=== PATIENT | male | born 1960 | race Caucasian/White ===

== ENCOUNTER 2021-01-28 08:14 | Outpatient (REF) | payer OTHER, SELFPAY ==
[2021-01-28 10:46] LABS: MANUAL DIFF FLAG NO
[2021-01-28 11:05] LABS: Basophils Absolute Auto 0.1 X10*3/uL (0.0-0.2); Basophils Percent Auto 0.8 % (0-2); Eosinophils Absolute Auto 0.1 X10*3/uL (0.0-0.4); Eosinophils Percent Auto 0.9 % (0-4); Hematocrit 46.1 % (42-52); Imm Gran Abs Auto 0.02 X10*3/uL (0.00-0.03); Imm Gran Pct Auto 0.2 % (0.0-0.4); Lymphocytes Absolute Auto 1.1 X10*3/uL (1.2-4.9); Lymphocytes Percent Auto 12.5 % (20-40); Mean Corpuscular HGB Conc 34.7 g/dl (31.0-36.0); Mean Corpuscular Hemoglobin 30.2 pg (27.0-33.0); Mean Platelet Volume 10.1 fL (9.4-12.4); Monocytes Absolute Auto 0.7 X10*3/uL (0.1-1.2); Monocytes Percent Auto 8.7 % (2-11); Neutrophils Absolute Auto 6.6 X10*3/uL (2.0-8.3); Neutrophils Percent Auto 76.9 % (45-73); Platelet Count 284 X10*3/uL (160-400); Red Cell Distribution Width 11.9 % (11.0-16.0); White Blood Count 8.5 X10*3/uL (4.8-10.8)
[2021-01-28 11:32] LABS: Alanine Aminotransferase 20 U/L (0-40); Albumin Level 4.3 g/dL (3.5-5.0); Alkaline Phosphatase 94 U/L (39-117); Anion Gap 10 (12-20); Aspartate Amino Transferase 15 U/L (5-37); Bilirubin Total 0.5 mg/dL (0.0-1.0); Blood Urea Nitrogen 13 mg/dL (9-16); Calcium 9.4 mg/dL (8.4-10.2); Carbon Dioxide 29 mmol/L (22-29); Chloride 102 mmol/L (96-108); Cholesterol 261 mg/dL; Estimated Glomerular Filt Rate > 60; Glucose Fasting 119 mg/dL (60-99); HDL Cholesterol 52 mg/dL; LDL Cholesterol Calculated 177 mg/dl; Potassium 4.6 mmol/L (3.3-5.1); Sodium 136 mmol/L (135-145); Total Protein 7.2 g/dL (6.5-8.0); Triglycerides 162 mg/dL
[2021-01-28 11:44] LABS: Prostate Specific Antigen Scr 1.56 ng/mL (<0.05-4.0); TSH reflex Free T4 3.63 uIU/mL (0.32-4.0)
== END 2021-01-28 08:15 | disposition home or self-care (01) ==
LOC: HO.WFDLDS 08:14
PROVIDERS: Visit Provider Family Medicine
DX: Z00.00 Encounter for general adult medical examination without abnormal findings (principal); M54.5 Low back pain; Z12.5 Encounter for screening for malignant neoplasm of prostate
CPT/HCPCS: 36415; 80053; 80061; 84153; 84443; 85025

== ENCOUNTER 2021-03-10 18:30 | Outpatient (REF) | payer OTHER, SELFPAY ==
[2021-03-11 05:16] LABS: CT PCR NOT DETECTED (Not Detect.); NG PCR NOT DETECTED (Not Detect.)
== END 2021-03-10 18:31 | disposition home or self-care (01) ==
LOC: HO.LNP 18:30
PROVIDERS: Visit Provider Hospitalist
DX: Z20.2 Contact with and (suspected) exposure to infections with a predominantly sexual mode of transmission (principal)
CPT/HCPCS: 87086; 87491; 87591

== ENCOUNTER 2021-03-11 13:26 | Outpatient (REF) | payer MEDICARE, SELFPAY | END 2021-03-11 13:27 | disposition home or self-care (01) | LOC: HO.LNP 13:26 | PROVIDERS: Visit Provider Hospitalist | DX: Z76.89 Persons encountering health services in other specified circumstances (principal) | CPT/HCPCS: 87086 ==

== ENCOUNTER 2021-03-27 09:33 | Outpatient (REF) | payer MEDICARE, SELFPAY ==
--- NOTE | ~2021-03-27 | US_ITS ---
EXAMINATION: US PELVIS, LIMITED/FOLLOW UP CLINICAL INFORMATION: Left inguinal pain. COMPARISON: None TECHNIQUE: Targeted sonographic evaluation of the left inguinal region. FINDINGS: Mesh associated with previous hernia repair noted. No acute abnormality. No hernia. No mass. No lymphadenopathy. Incidental note of atherosclerotic plaque of the left common femoral artery. US/US pelvic limited IMPRESSION: Evidence of prior hernia repair with mesh. No focal abnormality seen at this time.
== END 2021-03-27 09:34 | disposition home or self-care (01) ==
LOC: HO.US 09:33
PROVIDERS: PCP Family Medicine; Visit Provider Family Medicine
DX: R10.30 Lower abdominal pain, unspecified (principal)
CPT/HCPCS: 76857

== ENCOUNTER → 2021-06-06 08:20 | Outpatient (BNVA) | payer MEDICARE, SELFPAY | PROVIDERS: PCP Family Medicine; Visit Provider Nurse Practitioner Family | DX: M53.3 Sacrococcygeal disorders, not elsewhere classified (principal) | CPT/HCPCS: 99202 ==

== ENCOUNTER → 2021-06-27 08:01 | Outpatient (BNVA) | payer MEDICARE, SELFPAY | PROVIDERS: PCP Family Medicine; Visit Provider Nurse Practitioner Family | DX: M53.3 Sacrococcygeal disorders, not elsewhere classified (principal); M47.816 Spondylosis without myelopathy or radiculopathy, lumbar region | CPT/HCPCS: 99212 ==

== ENCOUNTER 2021-08-27 08:28 | Outpatient (REF) | payer MEDICARE, SELFPAY ==
[2021-08-27 11:37] LABS: Estimated Average Glucose 117 mg/dL; Hemoglobin A1c % 5.7 %
[2021-08-27 12:15] LABS: Cholesterol 308 mg/dL; HDL Cholesterol 47 mg/dL; LDL Cholesterol Calculated 223 mg/dl; Triglycerides 194 mg/dL
[2021-08-29 00:35] LABS: LDL Cholesterol Direct 216 mg/dL (<100)
== END 2021-08-27 08:29 | disposition home or self-care (01) ==
LOC: HO.WFDLDS 08:28
PROVIDERS: Visit Provider Family Medicine
DX: R73.01 Impaired fasting glucose (principal); E78.5 Hyperlipidemia, unspecified; E78.2 Mixed hyperlipidemia
CPT/HCPCS: 36415; 80061; 83036; 83721

== ENCOUNTER 2021-12-08 08:55 | Outpatient (REF) | payer MEDICARE, SELFPAY ==
[2021-12-08 12:03] LABS: Cholesterol 146 mg/dL; HDL Cholesterol 41 mg/dL; LDL Cholesterol Calculated 84 mg/dl; Triglycerides 107 mg/dL
== END 2021-12-08 08:56 | disposition home or self-care (01) ==
LOC: HO.WFDLDS 08:55
PROVIDERS: Visit Provider Family Medicine
DX: Z00.00 Encounter for general adult medical examination without abnormal findings (principal)
CPT/HCPCS: 36415; 80061

== ENCOUNTER 2022-10-12 09:41 | Outpatient (REF) | payer MEDICARE, SELFPAY ==
[2022-10-12 11:44] LABS: Appearance Urine Clear; Color Urine Yellow; Glucose Urine UA Negative (Negative); Leukocyte Esterase Urine Trace (Negative); Nitrite Urine Negative (Negative); Specific Gravity - Urine 1.015 (1.005-1.025); UMIC TRIGGER UA YES; Urine Blood Negative (Negative); Urine Ketones Trace mg/dL (Negative); Urine Protein Negative (Neg-Trace)
[2022-10-12 12:04] LABS: Bacteria Urine None Seen (None Seen); Hyaline Casts Urine 0-2 /LPF (0-2); RBC Urine 0-2 /HPF (0-2); Squamous Epithelial Cell Urine 0-2 /HPF (0-2); WBC Urine 0-5 /HPF (0-5)
[2022-10-12 12:08] LABS: Creatinine Urine 147.03 mg/dL; Microalbum/Creatinine Ratio Ur 5.4 ug/mg cr
[2022-10-12 12:21] LABS: Alanine Aminotransferase 37 U/L (0-40); Alkaline Phosphatase 99 U/L (39-117); Anion Gap 11 (12-20); Aspartate Amino Transferase 24 U/L (5-37); Bilirubin Total 0.9 mg/dL (0.0-1.0); Blood Urea Nitrogen 13 mg/dL (9-16); Carbon Dioxide 27 mmol/L (22-29); Chloride 107 mmol/L (96-108); Cholesterol 161 mg/dL; Estimated Glomerular Filt Rate > 60; Glucose Random 131 mg/dL (60-115); HDL Cholesterol 43 mg/dL; LDL Cholesterol Calculated 75 mg/dl; Sodium 141 mmol/L (135-145); Total Protein 6.5 g/dL (6.5-8.0); Triglycerides 219 mg/dL
[2022-10-12 12:37] LABS: Prostate Specific Antigen Scr 1.04 ng/mL (<0.05-4.0); TSH reflex Free T4 2.27 uIU/mL (0.32-4.0)
[2022-10-15 05:19] LABS: LDL Cholesterol Direct 89 mg/dL (<100)
== END 2022-10-12 09:42 | disposition home or self-care (01) ==
LOC: HO.WFDLDS 09:41
PROVIDERS: Visit Provider Family Medicine
DX: Z00.00 Encounter for general adult medical examination without abnormal findings (principal); Z12.5 Encounter for screening for malignant neoplasm of prostate; I10 Essential (primary) hypertension; E78.5 Hyperlipidemia, unspecified
CPT/HCPCS: 36415; 80053; 80061; 81001; 82043; 83721; 84153; 84443

== ENCOUNTER 2023-07-12 13:32 | Outpatient (AMB) | payer MEDICARE, SELFPAY ==
--- NOTE | 2023-07-12 13:35 | A.OFFPC_ITS ---
Vital Signs 07/12/23 13:40 Height 5 ft 7 in Weight 187 lb BMI 29.3 BP 126/68 Blood Pressure Location Lt brachial Position Sitting Respiration 12 Pulse 69 Pulse Source Pulse Oximeter Pulse Oximetry (%) 99 Oxygen Delivery Method Simple Mask Intake Visit Reasons: bmc fracture rib Intake Note: Patient is here for a hospital follow up post fall. Patient reports he has a cracked rib. 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 Manager Required: No Accompanied by: Self / Same As Patient Allergies cat dander Allergy (Verified 07/12/23 13:50) stuffy nose dog dander Allergy (Verified 07/12/23 13:50) stuffy nose house dust Allergy (Verified 07/12/23 13:50) stuffy nose Medication List - Last Reconciled 07/12/23 by JULIETTE Rodríguez-ROBY atorvastatin 80 mg PO BEDTIME 90 days back brace (Back Support S/M) As directed back brace As directed celecoxib 200 mg PO BID 90 days citalopram 20 mg PO DAILY famotidine (Acid Controller) 20 mg PO BEDTIME lisinopril 10 mg PO DAILY 90 days loratadine (Allergy Relief (loratadine)) 10 mg PO DAILY omeprazole 20 mg PO DAILY 90 days TENS units Daily As directed, 999 days/lifetime Tobacco use date assessed: 07/21/22 Fall risk assessment: 1 Fall in past year Last assessed Fall Risk: 07/12/23 HPI HPI Comments History of Present Illness Details 63-year-old male with hypertension who c omes to see me today after an emergency room visit 07/10/2023 at [facility]. He was seen for a fall. Reports he was working on a truck bed and slipped and fell backwards and landed on the castillo wheelchair ramp. He landed on the left side and had significant pain in the left posterior flank and rib area. A chest x-ray was done which showed an acute fracture in the posterior left 10th rib. He was discharged home with lidocaine patches and ibuprofen along with an incentive spirometer. He reports today feels terrible. Pain is excruciating. Using Ibuprofen w/o relief. Was not able to get lidocaine patches. Using heating pad with + effect. Along w/ binder. Breathing is sore. Using i-spy. No hemoptysis. Takes celebrex BID for OA pain prior to this. This is not a workers comp injury [facility] Medical History History of ear injury Surgical History History of hand surgery History of hernia surgery History of knee surgery History of lumpectomy Social History Housing: Other Housing Other:: mobile home Alcohol intake: never Patient Tobacco Use Status: Former Tobacco user e-Cigarette/Vaping Use: Never Used Second Hand Smoke Exposure: No service: No Current occupational status: disabled Current occupational exposures/hazards: No Cognitive needs: No Hearing needs: No Vision needs: Yes (Glasses) Questionnaire Thrive Questionnaire Date Thrive assessed: 07/21/22 LOREE-7 AMB Questionnaire LOREE-7 Date LOREE - 7 assessed: 07/21/22 Source: Developed by Drs. Aleksander Amaya, Karine Sadler, Prasanna Richardson and colleagues, with an educational gertrude from [employer]. Review of Systems Const All systems reviewed & are unremarkable except as noted in HPI and below Physical exam (Primary Care) Vital Signs: Last Vital Signs Pulse 69 07/12/23 13:40 Resp 12 07/12/23 13:40 BP 126/68 07/12/23 13:40 Pulse Ox 99 07/12/23 13:40 Oxygen Delivery Method Simple Mask 07/12/23 13:40 BMI result Body Mass Index 29.3 Tobacco/Smoking Status: Tobacco use Status Tobacco use date assessed 07/21/22 07/12/23 13:36 Patient Tobacco Use Status Former Tobacco user 07/12/23 13:36 e-Cigarette/Vaping Use Never Used 07/12/23 13:36 Thrive Assessment: Date of Thrive Assessment Date Thrive assessed 07/21/22 07/12/23 13:36 Const Other: Awake alert oriented no acute distress Mucous membranes moist Regular rate and rhythm Lung sounds clear to auscultation bilat Pain with palpation over left posterior rib in the area of 9 and 10. No crepitus no retraction no use of accessory muscles. Ecchymosis noted in this area Assessment and Plan Assessment & Plan (1) Hospital discharge follow-up: Code(s): Z09 - Encounter for follow-up examination after completed treatment for conditions other than malignant neoplasm (2) Left rib fracture: Code(s): S22.32XA - Fracture of one rib, left side, initial encounter for closed fracture Qualifiers: Encounter type: sequela Rib fracture type: single rib Fracture type: closed Qualified Code(s): S22.32XS - Fracture of one rib, left side, sequela Plan: Advised to stop taking ibuprofen as he is already on Celebrex. Also this is not provided him any benefit. 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 Plan will be to start him on tramadol. I have advised him to try half a tablet at 1st to see if this helps. If so take a half a tablet twice a day as needed. If half a tablet does not by benefit it is okay to take 1 tablet twice a day as needed. In addition as he is not able to sleep I have given him Zanaflex to take only to be used at bedtime and to be used sparingly. Advised to use a heating pad as this helps. Avoid bracing but encouraged to splint and use incentive spirometer. Educated on the signs and symptoms of pneumonia which is a complication that could arise from a rib fracture. This note is constructed using voice recognition software. While every effort has been made to ensure accuracy in endoscopy rn, still errors may have been included Sometimes, these errors may affect the content or meaning of the given sentence . Total time spent caring for the patient today was 30 minutes. This includes time spent before the visit reviewing the chart, time spent during the visit, and time spent after the visit on documentation Medications: New tramadol 50 mg PO BID 10 days PRN 20 tabs 0RF pain tizanidine (Zanaflex) 2 mg (1/2 x 4 mg) PO BEDTIME 10 days PRN 5 tabs 0RF muscle spasticity Coding Level of Care Code Est Pt Level 4 (45619) Diagnoses Hospital discharge follow-up Z09 Closed fracture of one rib of left side, sequela S22.32XS Encounter type: sequela Rib fracture type: single rib Fracture type: closed
[2023-07-12 13:40] VITALS: BP 126/68; PULSE 69; RESP 12; O2SAT 99; BMI 29.3
== END 2023-07-12 14:04 | disposition home or self-care (01) ==
PROVIDERS: PCP Family Medicine; Visit Provider Nurse Practitioner Family
DX: Z09 Encounter for follow-up examination after completed treatment for conditions other than malignant neoplasm (principal); S22.32XS Fracture of one rib, left side, sequela
CPT/HCPCS: 99214

== ENCOUNTER 2024-03-14 08:36 | Outpatient (AMB) | payer MEDICARE, SELFPAY ==
--- NOTE | 2024-03-14 09:10 | MHC.PC.OV ---
Vital Signs 03/14/24 09:16 Height 5 ft 7 in Weight 176 lb 2 oz BMI 27.6 BP 133/72 Blood Pressure Location Rt brachial Position Sitting Respiration 16 Pulse 69 Pulse Source Pulse Oximeter Temp 97.3 F Temp Source Temporal Artery Scan Pulse Oximetry (%) 98 Oxygen Delivery Method Room Air Intake Visit Reasons: ANNUAL PE Intake Note: PE Allergies cat dander Allergy (Verified 03/14/24 09:13) stuffy nose dog dander Allergy (Verified 03/14/24 09:13) stuffy nose house dust Allergy (Verified 03/14/24 09:13) stuffy nose Medication List - Last Reconciled 03/14/24 by Barrera Mayorga MD atorvastatin 80 mg PO BEDTIME 90 days back brace (Back Support S/M) As directed back brace As directed celecoxib 200 mg PO BID 90 days citalopram 20 mg PO DAILY famotidine (Acid Controller) 20 mg PO BEDTIME lisinopril 10 mg PO DAILY 90 days loratadine (Allergy Relief (loratadine)) 10 mg PO DAILY omeprazole 20 mg PO DAILY 90 days TENS units Daily As directed, 999 days/lifetime tizanidine (Zanaflex) 2 mg (1/2 x 4 mg) PO BEDTIME PRN 10 days Tobacco use date assessed: 03/14/24 Fall risk assessment: No Falls in past year Last assessed Fall Risk: 03/14/24 Dental Screening Dental Screen Date: 03/14/24 Did you have a dental visit in the last 12 months?: No Did you have a dental problem in the last 6 months where you did not have access to dental care?: No Was dental information given to patient?: Patient has dentist HPI ANNUAL PE HPI Details 64 y/o male presents for an extended exam with f/u labs and health maintenance. No recent labs to review. Blood pressure today 133/72, 69p. He is on lisinopril 10mg daily. HPI Comments History of Present Illness Details Documentation assistance for Barrera Mayorga MD, was provided by Karri Jacinto, Supervisor Pipeline Maintenance on 03/14/2024 at 9:45 AM EST. I, Dr. Mayorga, have read, observed, and verified documentation. [facility] Medical History History of ear injury Surgical History History of hand surgery History of hernia surgery History of knee surgery History of lumpectomy Social History (Updated 03/14/24 @ 09:15 by Jose Castillo [facility]) Housing: Other Housing Other:: mobile home Alcohol intake: never Patient Tobacco Use Status: Former Tobacco user e-Cigarette/Vaping Use: Never Used Second Hand Smoke Exposure: No Use of substances other than those prescribed or required for medical reasons: No service: No Current occupational status: disabled Current occupational exposures/hazards: No Cognitive needs: No Hearing needs: No Vision needs: Yes (Glasses) Questionnaire PHQ-9 Over the last 2 weeks, how often have you been bothered by any of the following problems? 1. Little interest or pleasure in doing things: not at all 2. Feeling down, depressed, or hopeless: not at all 3. Trouble falling or staying asleep, or sleeping too much: not at all 4. Feeling tired or having little energy: not at all 5. Poor appetite or overeating: not at all 6. Feeling bad about yourself - or that you are a failure or have let yourself or your family down: not at all 7. Trouble concentrating on things, such as reading the newspaper or watching television: not at all 8. Moving or speaking so slowly that other people could have noticed. Or the opposite - being so fidgety or restless that you have been moving around a lot more than usual: not at all 9. Thoughts that you would be better off or of hurting yourself in some way: not at all Total score: 0 Depression Screening Interpretation: Negative Depression Screening Done: Yes [id number] - PHQ-9 Billing: Yes Source: Developed by Drs. Aleksander Amaya, Karine Sadler, Prasanna Richardson and colleagues, with an educational gertrude from [employer]. Thrive Questionnaire Date Thrive assessed: 03/14/24 I am a: Patient What is your living situation today?: I have a steady place to live Within the past 12 months, did the food you bought not last and you didn't have the money to get more?: I choose not to answer this question Within the past 12 months, did you worry whether your food would run out before you got money to buy more?: Never true Do you have trouble paying for medicines?: No Do you have trouble getting transportation to medical appointments?: No Do you have trouble paying your heating and electricity bill?: I choose not to answer this question Do you have trouble taking care of your child, family member or friend?: No Do you have trouble with day-to-day activities such as bathing, preparing meals, shopping, managing finances, etc.?: No Are you currently unemployed and looking for a job?: No Are you interested in more education?: No Please select the resources that you would like help with: None Currently or been in a relationship where the following occur: I choose not to answer THRIVE Score: 0 AUDIT C Alcohol Use Questionnaire (AUDIT-C) 1. How often do you have a drink containing alcohol?: Never 3. How often do you have six or more drinks on one occasion?: Never Total Score: 0 Score Reviewed/Action Taken: Yes LOREE-7 AMB Questionnaire LOREE-7 Date LOREE - 7 assessed: 03/14/24 Feeling nervous, anxious, or on edge: 0 = Not at all Not being able to stop or control worryin = Not at all Worrying too much about different things: 0 = Not at all Trouble relaxin = Not at all Being so restless that it is hard to sit still: 0 = Not at all Becoming easily annoyed or irritable: 0 = Not at all Feeling afraid as if something awful might happen: 0 = Not at all Total LOREE-7 score (0-4 normal; 5-9 mild; 10-14 moderate; 15-21 severe): 0 Source: Developed by Drs. Aleksander Amaya, Karine Sadler, Prasanna Richardson and colleagues, with an educational gertrude from [employer]. LOREE-7 Assessment Billing LOREE-7 Assessment Tool: LOREE-7 Assessment [id number] Review of Systems Const Denies chills, Denies fatigue, Denies fever(s), Denies headache(s) and Denies weakness Eyes Denies change in vision ENT Denies dizziness and Denies headache(s) Card Denies dyspnea Resp Denies cough, Denies dyspnea, Denies wheezing and Denies other (shortness of breath) GI Denies abdominal pain, Denies melena, Denies hematochezia, Denies change in bowel habits, Denies dyspepsia and Denies nausea Denies hematuria and Denies dysuria Musc Denies numbness and Denies tingling Skin/Breast Denies rash, Denies unusual bruising and Denies wounds Neuro Denies dizziness, Denies headache(s), Denies numbness, Denies Sensory deficit (Neuro), Denies tingling and Denies weakness Psych Denies anxiety and Denies depression Endo Denies fatigue Chaka/Lymph Denies easy bleeding and Denies easy bruising Aller/Immun Denies wheezing Physical exam (Primary Care) Vital Signs: Last Vital Signs Temp 97.3 F 03/14/24 09:16 Pulse 69 03/14/24 09:16 Resp 16 03/14/24 09:16 BP 133/72 03/14/24 09:16 Pulse Ox 98 03/14/24 09:16 Oxygen Delivery Method Room Air 03/14/24 09:16 BMI result Body Mass Index 27.6 Tobacco/Smoking Status: Tobacco use Status Tobacco use date assessed 03/14/24 03/14/24 09:18 Patient Tobacco Use Status Former Tobacco user 03/14/24 09:15 e-Cigarette/Vaping Use Never Used 03/14/24 09:15 PHQ-9: PHQ-9 Score PHQ-9: Total score 0 03/14/24 09:29 Depression Screening Interpretation: Negative Thrive Assessment: Date of Thrive Assessment Date Thrive assessed 03/14/24 03/14/24 09:18 Currently or been in a relationship where the following occur: I choose not to answer Const General: well developed; No acute distress Nutritional Appearance: well nourished Orientation/consciousness: patient oriented x3 HENMT Head: Yes normocephalic and Yes atraumatic Ears: hearing grossly normal bilaterally and TM's normal bilaterally General nose exam: Normal external nose present and Normal nares present Mouth: Normal oral and palatal mucosa present and moist mucous membranes Teeth and gingiva: dentition normal Throat: Yes posterior oropharynx normal Eyes General: appearance normal, both eyes and all related structures Pupils: Equal, round and reactive pupils present EOM: EOMs intact bilaterally Neck Neck: Yes normal visual inspection, Yes no lymphadenopathy and Yes trachea midline Thyroid: Thyroid normal Carotids: no bruits Lymphatic: no lymphadenopathy noted Chest Chest palpation & inspection: normal inspection of the chest Resp Effort & Inspection: normal respiratory effort Auscultation: clear to auscultation bilaterally Cardio Rate: regular rate Rhythm: regular rhythm Heart sounds: S1 normal heart sound present, S2 normal heart sound present, no gallops, no murmurs and no rubs Bruits: no abdominal aortic bruits and no carotid bruits GI Palpation (GI): No Abdominal aortic bruit present, Soft to palpation, nontender, No hepatosplenomegaly present and No Rebound tenderness present Auscultation: normal bowel sounds General: Yes no CVA tenderness Back/Spine/Pelvis Back: no CVA tenderness Cervical Spine: cervical ROM normal and No Cervical spine tenderness Thoracic/Lumbar Spine: thoraco-lumbar ROM normal, No pain with thoraco-lumbar ROM, No thoracic spinal tenderness and No lumbar spinal tenderness Skin Lesions: no lesions Rashes: no rashes Trauma: no lacerations or abrasions Wounds: no wounds Nails: normal Neuro General: patient oriented x3 and gait normal Cranial nerves: Yes Equal, round and reactive pupils present Cognition (Neuro): normal cognition Gait exam (Neuro): Normal gait present Motor exam (neuro): 5/5 motor strength present throughout Sensory Exam: No Sensory deficit (Neuro) Deep tendon reflexes (DTR's): Right patellar reflex intensity grade: 2+ and Left patellar reflex intensity grade: 2+ Extrem General: Yes normal to inspection and No edema Psych Appearance: grossly normal Affect: normal affect Attitude: cooperative Thought process: Normal thought process present Coding Level of Care Code Est Pt Level 4 (49250) Diagnoses Essential hypertension I10 Hyperlipidemia E78.5 Screening for prostate cancer Z12.5 Immunization counseling Z71.85 Screening for colon cancer Z12.11 Adult general medical exam Z00.00 Additional Codes LOREE-7 Assessment Billing - OLREE-7 Assessment Tool: LOREE-7 Assessment [id number] ([id number]) Assessment & Plan Assessment & Plan (1) Essential hypertension: Code(s): I10 - Essential (primary) hypertension Category: Medical Plan: Blood?pressure?is?controlled.??Goal?is?less?than?140/90 Continue?current?medication (2) Hyperlipidemia: Code(s): E78.5 - Hyperlipidemia, unspecified Category: Medical Plan: Due?to?repeat?lipids.??He?is?on?atorvastatin Recheck?lipids (3) Screening for prostate cancer: Code(s): Z12.5 - Encounter for screening for malignant neoplasm of prostate Category: Medical Plan: Due?to?recheck?PSA?level Ordered (4) Immunization counseling: Code(s): Z71.85 - Encounter for immunization safety counseling Category: Medical Plan: Recommended?pneumonia?shot?which?he?can?get?at?his?pharmacy. Also?recommended?flu?shot?but?patient?declines?this Also?recommended?RSV (5) Screening for colon cancer: Code(s): Z12.11 - Encounter for screening for malignant neoplasm of colon Category: Medical Plan: Patient?says?his?last?colonoscopy?was?about?5?years?ago?at[facility]. He?is?not?certain?when?follow-up?was?recommended. Will?request?report (6) Adult general medical exam: Code(s): Z00.00 - Encounter for general adult medical examination without abnormal findings Category: Medical Plan: 64-year-old?male?presents?for?extended?exam Encouraged?healthy?diet?with?active?lifestyle?and?plenty?of?exercise Orders: Orders Complete Blood Count Auto Diff Today Z00.00 - Encounter for general adult medical examination without abnormal findings Prostate Specific Antigen Scr Today Z12.5 - Encounter for screening for malignant neoplasm of prostate TSH reflex Free T4 Today Z00.00 - Encounter for general adult medical examination without abnormal findings Comprehensive Richardson. Panel Fast Today Z00.00 - Encounter for general adult medical examination without abnormal findings Lipid Panel Today Z00.00 - Encounter for general adult medical examination without abnormal findings Microalbumin, Random (w Creat) Today I10 - Essential (primary) hypertension UA and rflx microscopic Today Z00.00 - Encounter for general adult medical examination without abnormal findings
[2024-03-14 09:16] VITALS: BP 133/72; PULSE 69; RESP 16; TEMP 36.3; O2SAT 98; BMI 27.6
== END 2024-03-14 09:50 | disposition home or self-care (01) ==
PROVIDERS: PCP Family Medicine; Visit Provider Family Medicine
DX: R73.03 Prediabetes (principal)

== ENCOUNTER → 2024-03-14 08:36 | Outpatient (BNVA) | payer MEDICARE, SELFPAY | PROVIDERS: PCP Family Medicine; Visit Provider Family Medicine | DX: I10 Essential (primary) hypertension (principal); E78.5 Hyperlipidemia, unspecified; Z79.899 Other long term (current) drug therapy; Z71.85 Encounter for immunization safety counseling | CPT/HCPCS: 83036; 96127; 99212 ==

== ENCOUNTER 2024-03-23 08:15 | Outpatient (REF) | payer MEDICARE, SELFPAY ==
[2024-03-23 11:10] LABS: MANUAL DIFF FLAG NO
[2024-03-23 11:19] LABS: Basophils Absolute Auto 0.1 X10*3/uL (0.0-0.2); Basophils Percent Auto 0.9 % (0-2); Eosinophils Absolute Auto 0.1 X10*3/uL (0.0-0.4); Eosinophils Percent Auto 1.4 % (0-4); Imm Gran Abs Auto 0.02 X10*3/uL (0.00-0.03); Imm Gran Pct Auto 0.3 % (0.0-0.4); Lymphocytes Percent Auto 12.6 % (20-40); Mean Corpuscular HGB Conc 34.1 g/dl (31.0-36.0); Mean Corpuscular Hemoglobin 30.6 pg (27.0-33.0); Mean Corpuscular Volume 89.8 fL (80.0-98.0); Monocytes Absolute Auto 0.6 X10*3/uL (0.1-1.2); Monocytes Percent Auto 7.9 % (2-11); Neutrophils Absolute Auto 5.9 x10*3/uL (2.0-8.3); Neutrophils Percent Auto 76.9 % (45-73); Platelet Count 244 X10*3/uL (160-400); Red Cell Distribution Width 11.8 % (11.0-16.0); White Blood Count 7.7 X10*3/uL (4.8-10.8)
[2024-03-23 11:48] LABS: Alanine Aminotransferase 29 U/L (0-40); Albumin Level 4.2 g/dL (3.5-5.0); Alkaline Phosphatase 100 U/L (39-117); Anion Gap 11 (12-20); Aspartate Amino Transferase 20 U/L (5-37); Bilirubin Total 0.6 mg/dL (0.0-1.0); Blood Urea Nitrogen 14 mg/dL (9-16); Calcium 10.2 mg/dL (8.4-10.2); Carbon Dioxide 29 mmol/L (22-29); Chloride 106 mmol/L (96-108); Cholesterol 165 mg/dL (<200); Estimated Glomerular Filt Rate > 60; Glucose Fasting 131 mg/dL (60-99); HDL Cholesterol 47 mg/dL (>40); LDL Cholesterol Calculated 92 mg/dL (<100); Potassium 4.4 mmol/L (3.3-5.1); Sodium 142 mmol/L (135-145); Total Protein 6.9 g/dL (6.5-8.0); Triglycerides 131 mg/dL (<150)
[2024-03-23 11:51] LABS: Prostate Specific Antigen Scr 1.26 ng/mL (<0.05-4.0)
[2024-03-23 11:54] LABS: TSH reflex Free T4 2.44 uIU/mL (0.32-4.0)
[2024-03-23 14:26] LABS: Appearance Urine Clear; Color Urine Yellow; Glucose Urine UA Negative (Negative); Leukocyte Esterase Urine Negative (Negative); Nitrite Urine Negative (Negative); PH 6.5 (5.0-9.0); Urine Blood Negative (Negative); Urine Ketones Negative (Negative); Urine Protein Negative (Neg-Trace)
[2024-03-23 15:10] LABS: Creatinine Urine 67.01 mg/dL; Microalbumin Urine < 5.0 mg/L
== END 2024-03-23 08:16 | disposition home or self-care (01) ==
LOC: HO.WFDLDS 08:15
PROVIDERS: Visit Provider Family Medicine
DX: Z00.00 Encounter for general adult medical examination without abnormal findings (principal); I10 Essential (primary) hypertension; Z12.5 Encounter for screening for malignant neoplasm of prostate
CPT/HCPCS: 36415; 80053; 80061; 81003; 82043; 82570; 84153; 84443; 85025

== ENCOUNTER 2024-04-04 14:48 | Outpatient (AMB) | payer MEDICARE, SELFPAY ==
--- NOTE | 2024-04-04 14:45 | A.OFFPC_ITS ---
Intake Visit Reasons: f/u CPE-labs via telemedicine Allergies cat dander Allergy (Verified 03/14/24 09:13) stuffy nose dog dander Allergy (Verified 03/14/24 09:13) stuffy nose house dust Allergy (Verified 03/14/24 09:13) stuffy nose Medication List - Last Reconciled 04/04/24 by Barrera Mayorga MD atorvastatin 80 mg PO BEDTIME 90 days back brace (Back Support S/M) As directed back brace As directed celecoxib 200 mg PO BID 90 days citalopram 20 mg PO DAILY famotidine (Acid Controller) 20 mg PO BEDTIME lisinopril 10 mg PO DAILY 90 days loratadine (Allergy Relief (loratadine)) 10 mg PO DAILY omeprazole 20 mg PO DAILY 90 days TENS units Daily As directed, 999 days/lifetime Tobacco use date assessed: 03/14/24 Dental Screening Dental Screen Date: 03/14/24 HPI f/u CPE-labs via telemedicine HPI Details 64 y/o male presents to f/u CPE labs via telemedicine. Labs drawn 03/23/24. Reviewed labs with pt. Triglycerides 131. TC 165. LDL 92. HDL 47. He is on rosuvastatin for his cholesterol. PSA 1.26. A1c 03/14/24 6.0%. [facility] Medical History History of ear injury Surgical History History of hand surgery History of hernia surgery History of knee surgery History of lumpectomy Social History (Updated 03/14/24 @ 09:15 by Jose Castillo [facility]) Housing: Other Housing Other:: mobile home Alcohol intake: never Patient Tobacco Use Status: Former Tobacco user e-Cigarette/Vaping Use: Never Used Second Hand Smoke Exposure: No service: No Current occupational status: disabled Current occupational exposures/hazards: No Cognitive needs: No Hearing needs: No Vision needs: Yes (Glasses) Questionnaire Thrive Questionnaire Date Thrive assessed: 03/14/24 LOREE-7 AMB Questionnaire LOREE-7 Date LOREE - 7 assessed: 03/14/24 Source: Developed by Drs. Aleksander Amaya, Karine Sadler, Prasanna Richardson and colleagues, with an educational gertrude from [employer] Review of Systems Const Denies chills, Denies fatigue, Denies fever(s), Denies headache(s) and Denies weakness ENT Denies dizziness and Denies headache(s) Card Denies dyspnea Resp Denies cough, Denies dyspnea, Denies wheezing and Denies other (shortness of breath) Musc Denies numbness and Denies tingling Neuro Denies dizziness, Denies headache(s), Denies numbness, Denies tingling and Denies weakness Psych Denies anxiety and Denies depression Endo Denies fatigue Aller/Immun Denies wheezing Physical exam (Primary Care) Tobacco/Smoking Status: Tobacco use Status Tobacco use date assessed 03/14/24 04/04/24 14:48 Patient Tobacco Use Status Former Tobacco user 04/04/24 14:48 e-Cigarette/Vaping Use Never Used 04/04/24 14:48 Thrive Assessment: Date of Thrive Assessment Date Thrive assessed 03/14/24 04/04/24 14:48 Telehealth Telehealth Telehealth Platform: Telephone Location of provider rendering services: practice address Location of patient: address on file Patient Identification confirmed using: Name, : Yes Telehealth method: voice only Patient verbally consented to treatment: Yes Patient verbally consented to billing insurance company: Yes Patient informed of any privacy concerns related to visit: Yes Minutes spent on Phone/Video with Pt.: 8 Coding Level of Care Code Tele Est Pt Level 2 (46223) Diagnoses Hyperlipidemia E78.5 Pre-diabetes R73.03 Screening for colon cancer Z12.11 Screening for prostate cancer Z12.5 Difficulty sleeping G47.9 Assessment & Plan Assessment & Plan (1) Hyperlipidemia: Code(s): E78.5 - Hyperlipidemia, unspecified Category: Medical Plan: Lipids?appear?well?controlled?on?current?medication Continue?atorvastatin?80?mg?daily (2) Pre-diabetes: Code(s): R73.03 - Prediabetes Category: Medical Plan: Blood?sugars?remain?elevated A1c?has?been?in?pre?diabetes?range?before He?will?return?in?about?6?weeks?to?recheck?A1c (3) Screening for colon cancer: Code(s): Z12.11 - Encounter for screening for malignant neoplasm of colon Category: Medical Plan: Patient?had?a?colonoscopy?in?2021?which?showed?a?sigmoid?polyp.??No?mention?in?r eport?about?follow-up?date Advised?patient?to?check?with?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 He?is?having?difficulty?sleeping Will?give?him?a?course?of?Ambien.??Twelve?tabs?per?30?days?and?advised?him?to?us e?them?sparingly. Medications: New zolpidem 5 mg PO BEDTIME PRN 12 tabs 0RF sleep 30 days
== END 2024-04-04 17:05 | disposition home or self-care (01) ==
LOC: HO.HMCFM 14:48
PROVIDERS: PCP Family Medicine; Visit Provider Family Medicine
DX: E78.5 Hyperlipidemia, unspecified (principal); R73.03 Prediabetes; G47.9 Sleep disorder, unspecified; Z12.11 Encounter for screening for malignant neoplasm of colon; Z12.5 Encounter for screening for malignant neoplasm of prostate

== ENCOUNTER 2024-07-10 08:02 | Outpatient (AMB) | payer MEDICARE, SELFPAY ==
--- NOTE | 2024-07-10 09:26 | A.OFFPC_ITS ---
Vital Signs 07/10/24 09:28 Height 5 ft 7 in Weight 186 lb 4 oz BMI 29.2 BP 142/67 H Blood Pressure Location Lt brachial Position Sitting Respiration 16 Pulse 77 Pulse Source Pulse Oximeter Temp 98.1 F Temp Source Oral Pulse Oximetry (%) 98 Oxygen Delivery Method Room Air Intake Visit Reasons: f/u HLD, pre-diabetes Intake Note: labs review and pre-dm Allergies cat dander Allergy (Verified 07/10/24 09:27) stuffy nose dog dander Allergy (Verified 07/10/24 09:27) stuffy nose house dust Allergy (Verified 07/10/24 09:27) stuffy nose Medication List - Last Reconciled 07/10/24 by Barrera Mayorga MD atorvastatin 80 mg PO BEDTIME 90 days back brace (Back Support S/M) As directed back brace As directed celecoxib 200 mg PO BID 90 days citalopram 20 mg PO DAILY famotidine (Acid Controller) 20 mg PO BEDTIME lisinopril 10 mg PO DAILY 90 days loratadine (Allergy Relief (loratadine)) 10 mg PO DAILY omeprazole 20 mg PO DAILY 90 days TENS units Daily As directed, 999 days/lifetime zolpidem 5 mg PO BEDTIME PRN 30 days Tobacco use date assessed: 03/14/24 Dental Screening Dental Screen Date: 03/14/24 HPI f/u HLD, pre-diabetes HPI Details 64 y/o male presents to f/u HLD, pre-romelia betalyson. Blood pressure today 142/67, 77p. He is on lisinopril 10mg daily. No recent labs to review for his lipids. He notes increased stressors. [facility] Medical History History of ear injury Surgical History History of hand surgery History of hernia surgery History of knee surgery History of lumpectomy Social History (Updated 03/14/24 @ 09:15 by RAI Naranjo) Housing: Other Housing Other:: mobile home Alcohol intake: never Patient Tobacco Use Status: Former Tobacco user e-Cigarette/Vaping Use: Never Used Second Hand Smoke Exposure: No service: No Current occupational status: disabled Current occupational exposures/hazards: No Cognitive needs: No Hearing needs: No Vision needs: Yes (Glasses) Questionnaire Thrive Questionnaire Date Thrive assessed: 03/14/24 LOREE-7 AMB Questionnaire LOREE-7 Date LOREE - 7 assessed: 03/14/24 Source: Developed by Drs. Aleksander Amaya, Karine Sadler, Prasanna Richardson and colleagues, with an educational gertrude from [employer]. Review of Systems Const Denies chills, Denies fatigue, Denies fever(s), Denies headache(s) and Denies weakness ENT Denies dizziness, Denies headache(s) and Reports nasal congestion Card Denies chest pain, Denies lightheadedness, Denies dyspnea and Denies other (Palpitations) Resp Denies cough, Denies dyspnea, Denies wheezing and Denies other ( shortness of breath) Musc Denies numbness and Denies tingling Neuro Denies dizziness, Denies headache(s), Denies numbness, Denies tingling, Denies paresthesias and Denies weakness Psych Reports anxiety and Denies depression Endo Denies fatigue Aller/Immun Denies wheezing Physical exam (Primary Care) Vital Signs: Last Vital Signs Temp 98.1 F 07/10/24 09:28 Pulse 77 07/10/24 09:28 Resp 16 07/10/24 09:28 BP 142/67 H 07/10/24 09:28 Pulse Ox 98 07/10/24 09:28 Oxygen Delivery Method Room Air 07/10/24 09:28 BMI result Body Mass Index 29.2 Tobacco/Smoking Status: Tobacco use Status Tobacco use date assessed 03/14/24 07/10/24 09:30 Patient Tobacco Use Status Former Tobacco user 07/10/24 09:30 e-Cigarette/Vaping Use Never Used 07/10/24 09:30 Thrive Assessment: Date of Thrive Assessment Date Thrive assessed 03/14/24 07/10/24 09:30 Const General: no acute distress and well developed Nutritional Appearance: well nourished Orientation/consciousness: patient oriented x3 HENMT Head: Yes normocephalic and Yes atraumatic Eyes General: appearance normal, both eyes and all related structures Pupils: Equal, round and reactive pupils present EOM: EOMs intact bilaterally Resp Effort & Inspection: normal respiratory effort Auscultation: clear to auscultation bilaterally Cardio Rate: regular rate Rhythm: regular rhythm Heart sounds: S1 normal heart sound present, S2 normal heart sound present, no gallops, no murmurs and no rubs Neuro General: patient oriented x3 and gait normal Cranial nerves: Yes Equal, round and reactive pupils present Psych Affect: normal affect Coding Level of Care Code Est Pt Level 4 (58053) Diagnoses Essential hypertension I10 Pre-diabetes R73.03 Anxiety F41.9 Nasal congestion R09.81 Assessment & Plan Assessment & Plan (1) Essential hypertension: Code(s): I10 - Essential (primary) hypertension Category: Medical Plan: Blood?pressure?is?elevated?today.??Patient?notes?that?he?has?been?stressed?latel y?as?his?mom's?health?is?declining Goal?is?less?than?140/90 We?will?follow-up ?again?in?a?few?months.??If?blood?pressure?is?still?elevated,?will?adjust?his?li sinopril Watch?salt/sodium?in?diet,?get?plenty?of?sleep?and?relaxation?as?able. (2) Pre-diabetes: Code(s): R73.03 - Prediabetes Category: Medical Plan: A1c?has?climbed ?against?lately?and?we?discussed?that?he?is?also?some?weight?back. Keep?working?at?a?diet?lower?sugars?and?starches Will?continue?to?monitor (3) Anxiety: Code(s): F41.9 - Anxiety disorder, unspecified Category: Medical Plan: As?above,?worsening?anxiety?as?his?mom's?health?is?declining Keep?working?relaxation?plenty?rest Will?increase?citalopram (4) Nasal congestion: Code(s): R09.81 - Nasal congestion Category: Medical Plan: Patient?has?been?using?Afrin?frequently. Advised?him?to?discontinue?this He?can?use?a?nasal?steroid?and?also?antihistamines?night's Continuing?filtered?air. Orders: Orders Microalbumin, Random (w Creat) Today I10 - Essential (primary) hypertension Comprehensive [place]. Panel Fast Today Z00.00 - Encounter for general adult medical examination without abnormal findings Medications: New fluticasone propionate 50 mcg/actuation (Flonase Allergy Relief) administer into each nostril 1 spray intranasal Q12H 30 days 16 grams 2RF Changed From citalopram 20 mg PO DAILY 30 tabs 3RF To citalopram 40 mg PO DAILY 90 days 90 tabs 3RF Refilled celecoxib 200 mg PO BID 90 days 180 caps 3RF zolpidem 5 mg PO BEDTIME 30 days PRN 12 tabs 0RF sleep
[2024-07-10 09:28] VITALS: BP 142/67; PULSE 77; RESP 16; TEMP 36.7; O2SAT 98; BMI 29.2
== END 2024-07-10 10:07 | disposition home or self-care (01) ==
LOC: HO.HMCFM 08:02
PROVIDERS: PCP Family Medicine; Visit Provider Family Medicine
DX: I10 Essential (primary) hypertension (principal); R73.03 Prediabetes; F41.9 Anxiety disorder, unspecified; R09.81 Nasal congestion

== ENCOUNTER → 2024-07-10 08:02 | Outpatient (BNVA) | payer MEDICARE, SELFPAY | PROVIDERS: PCP Family Medicine; Visit Provider Family Medicine | DX: I10 Essential (primary) hypertension (principal); R73.03 Prediabetes; F41.9 Anxiety disorder, unspecified; R09.81 Nasal congestion | CPT/HCPCS: 83036; 99212 ==

== ENCOUNTER 2024-10-05 09:45 | Outpatient (REF) | payer MEDICARE, SELFPAY ==
[2024-10-05 14:59] LABS: Alanine Aminotransferase 30 U/L (0-40); Albumin Level 4.3 g/dL (3.5-5.0); Anion Gap 12 (12-20); Aspartate Amino Transferase 20 U/L (5-37); Bilirubin Total 0.8 mg/dL (0.0-1.0); Blood Urea Nitrogen 17 mg/dL (9-16); Calcium 9.6 mg/dL (8.4-10.2); Carbon Dioxide 27 mmol/L (22-29); Chloride 105 mmol/L (96-108); Estimated Glomerular Filt Rate > 60; Glucose Fasting 122 mg/dL (60-99); Potassium 4.5 mmol/L (3.3-5.1); Sodium 139 mmol/L (135-145); Total Protein 7.1 g/dL (6.5-8.0)
[2024-10-05 15:52] LABS: Alkaline Phosphatase 117 U/L (39-117)
[2024-10-05 18:15] LABS: Creatinine Urine 228.78 mg/dL; Microalbum/Creatinine Ratio Ur 6.5 ug/mg cr (<30)
== END 2024-10-05 09:46 | disposition home or self-care (01) ==
LOC: HO.WFDLDS 09:45
PROVIDERS: Visit Provider Family Medicine
DX: Z00.00 Encounter for general adult medical examination without abnormal findings (principal); I10 Essential (primary) hypertension
CPT/HCPCS: 36415; 80053; 82043; 82570

== ENCOUNTER 2024-10-11 08:32 | Outpatient (AMB) | payer MEDICARE, SELFPAY ==
--- NOTE | 2024-10-11 08:48 | MHC.PC.OV ---
Vital Signs 10/11/24 08:51 Height 5 ft 7 in Weight 170 lb 6 oz BMI 26.7 BP 110/60 Blood Pressure Location Lt brachial Position Sitting Respiration 16 Pulse 66 Pulse Source Pulse Oximeter Temp 98.3 F Temp Source Oral Pulse Oximetry (%) 95 Oxygen Delivery Method Room Air Intake Visit Reasons: f/u HTN, HLD Intake Note: follow up labs and htn pt also need refill for omprezole [employer] Required: No Allergies cat dander Allergy (Verified 10/11/24 08:49) stuffy nose dog dander Allergy (Verified 10/11/24 08:49) stuffy nose house dust Allergy (Verified 10/11/24 08:49) stuffy nose Medication List - Last Reconciled 10/11/24 by Barrera Mayorga MD atorvastatin 80 mg PO BEDTIME 90 days back brace (Back Support S/M) As directed back brace As directed celecoxib 200 mg PO BID 90 days citalopram 40 mg PO DAILY 90 days famotidine (Acid Controller) 20 mg PO BEDTIME fluticasone propionate 50 mcg/actuation (Flonase Allergy Relief) 1 spray intranasal Q12H 30 days lisinopril 10 mg PO DAILY 90 days loratadine (Allergy Relief (loratadine)) 10 mg PO DAILY omeprazole 20 mg PO DAILY 90 days TENS units Daily As directed, 999 days/lifetime zolpidem 5 mg PO BEDTIME PRN 30 days Tobacco use date assessed: 03/14/24 Dental Screening Dental Screen Date: 03/14/24 HPI f/u HTN, HLD HPI Details 64 y/o male presents to f/u HTN, HLD. No recent lipid panel to review. He is on artovastatin 80mg. Blood pressure today 110/60, 66p. He is on lisinopril 10mg daily. Last A1c in June 6.2%. A1c today 10/11/24 is 6.1%. Pt notes he has been making some dietary changes. Pt reports vision changes. HPI Comments History of Present Illness Details Documentation assistance for Barrera Mayorga MD, was provided by Karri Jacinto,? [employer] on 10/11/2024 at 9:29 AM EST. I, Dr. Mayorga, have read, observed, and verified documentation. ? PFSH Medical History History of ear injury Surgical History History of hand surgery History of hernia surgery History of knee surgery History of lumpectomy Social History (Updated 03/14/24 @ 09:15 by Jose Castillo [facility] [place]) Housing: Other Housing Other:: mobile home Alcohol intake: never Patient Tobacco Use Status: Former Tobacco user e-Cigarette/Vaping Use: Never Used Second Hand Smoke Exposure: No service: No Current occupational status: disabled Current occupational exposures/hazards: No Cognitive needs: No Hearing needs: No Vision needs: Yes (Glasses) Questionnaire PHQ-9 Over the last 2 weeks, how often have you been bothered by any of the following problems? 1. Little interest or pleasure in doing things: not at all 2. Feeling down, depressed, or hopeless: not at all 3. Trouble falling or staying asleep, or sleeping too much: several days 4. Feeling tired or having little energy: not at all 5. Poor appetite or overeating: not at all 6. Feeling bad about yourself - or that you are a failure or have let yourself or your family down: not at all 7. Trouble concentrating on things, such as reading the newspaper or watching television: not at all 8. Moving or speaking so slowly that other people could have noticed. Or the opposite - being so fidgety or restless that you have been moving around a lot more than usual: not at all 9. Thoughts that you would be better off or of hurting yourself in some way: not at all Total score: 1 Source: Developed by Drs. Aleksander Amaya, Karine Sadler, Prasanna Richardson and colleagues, with an educational gertrude from [employer]. Thrive Questionnaire Date Thrive assessed: 03/14/24 I am a: Patient What is your living situation today?: I have a steady place to live Within the past 12 months, did the food you bought not last and you didn't have the money to get more?: Never true Within the past 12 months, did you worry whether your food would run out before you got money to buy more?: Never true Do you have trouble paying for medicines?: Yes Do you have trouble getting transportation to medical appointments?: No Do you have trouble paying your heating and electricity bill?: No Do you have trouble taking care of your child, family member or friend?: No Do you have trouble with day-to-day activities such as bathing, preparing meals, shopping, managing finances, etc.?: No Are you currently unemployed and looking for a job?: No Are you interested in more education?: No Please select the resources that you would like help with: Utilities Currently or been in a relationship where the following occur: No concerns reported THRIVE Score: 0 AUDIT C Alcohol Use Questionnaire (AUDIT-C) 1. How often do you have a drink containing alcohol?: Never Total Score: 0 LOREE-7 AMB Questionnaire LOREE-7 Date LOREE - 7 assessed: 03/14/24 Feeling nervous, anxious, or on edge: 0 = Not at all Not being able to stop or control worryin = Not at all Worrying too much about different things: 0 = Not at all Trouble relaxin = Not at all Being so restless that it is hard to sit still: 0 = Not at all Becoming easily annoyed or irritable: 0 = Not at all Feeling afraid as if something awful might happen: 0 = Not at all Total LOREE-7 score (0-4 normal; 5-9 mild; 10-14 moderate; 15-21 severe): 0 Source: Developed by Drs. Aleksander Amaya, Karine Sadler, Prasanna Richardson and colleagues, with an educational gertrude from [employer]. Review of Systems Const Denies chills, Denies fatigue, Denies fever(s), Denies headache(s) and Denies weakness ENT Denies dizziness and Denies headache(s) Card Denies dyspnea Resp Denies cough, Denies dyspnea, Denies wheezing and Denies other (shortness of breath) Musc Denies numbness and Denies tingling Neuro Denies dizziness, Denies headache(s), Denies numbness, Denies tingling and Denies weakness Psych Denies anxiety and Denies depression Endo Denies fatigue Aller/Immun Denies wheezing Physical exam (Primary Care) Vital Signs: Last Vital Signs Temp 98.3 F 10/11/24 08:51 Pulse 66 10/11/24 08:51 Resp 16 10/11/24 08:51 BP 110/60 10/11/24 08:51 Pulse Ox 95 10/11/24 08:51 Oxygen Delivery Method Room Air 10/11/24 08:51 BMI result Body Mass Index 26.7 Tobacco/Smoking Status: Tobacco use Status Tobacco use date assessed 03/14/24 10/11/24 08:48 Patient Tobacco Use Status Former Tobacco user 10/11/24 08:48 e-Cigarette/Vaping Use Never Used 10/11/24 08:48 PHQ-9: PHQ-9 Score PHQ-9: Total score 1 10/11/24 09:27 Thrive Assessment: Date of Thrive Assessment Date Thrive assessed 03/14/24 10/11/24 08:48 Currently or been in a relationship where the following occur: No concerns reported Const General: well developed; No acute distress Nutritional Appearance: well nourished Orientation/consciousness: patient oriented x3 HENMT Head: Yes normocephalic and Yes atraumatic Eyes General: appearance normal, both eyes and all related structures Pupils: Equal, round and reactive pupils present EOM: EOMs intact bilaterally Resp Effort & Inspection: normal respiratory effort Auscultation: clear to auscultation bilaterally Cardio Rate: regular rate Rhythm: regular rhythm Heart sounds: S1 normal heart sound present, S2 normal heart sound present, no gallops, no murmurs and no rubs Neuro General: patient oriented x3 and gait normal Cranial nerves: Yes Equal, round and reactive pupils present Psych Affect: normal affect Coding Level of Care Code Est Pt Level 4 (33217) Diagnoses Essential hypertension I10 Hyperlipidemia E78.5 Pre-diabetes R73.03 Vision changes H53.9 Assessment & Plan Assessment & Plan (1) Essential hypertension: Code(s): I10 - Essential (primary) hypertension Category: Medical Plan: Blood?pressure?is?well?controlled.??Goal?is?less?than?140/90 Continue?current?medication (2) Hyperlipidemia: Code(s): E78.5 - Hyperlipidemia, unspecified Category: Medical Plan: He?is?taking?atorvastatin?and?tolerating?this?well. Prior?lipid?test?was?canceled?but?he?will?get?this?drawn?with?his?next?set?of?labs Continue?atorvastatin (3) Pre-diabetes: Code(s): R73.03 - Prediabetes Category: Medical Plan: He?has?lost?some?weight?and?A1c?decreased?slightly?from 6.2%?to?6.1%. Heading?in?the?right?direction.??Encouraged?further?diet?and?exercise Watch?sugars?and?starches?diet. 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
[2024-10-11 08:51] VITALS: BP 110/60; PULSE 66; RESP 16; TEMP 36.8; O2SAT 95; BMI 26.7
== END 2024-10-11 09:49 | disposition home or self-care (01) ==
LOC: HO.HMCFM 08:33
PROVIDERS: PCP Family Medicine; Visit Provider Family Medicine
DX: I10 Essential (primary) hypertension (principal); E78.5 Hyperlipidemia, unspecified; R73.03 Prediabetes; H53.9 Unspecified visual disturbance

== ENCOUNTER → 2024-10-11 08:32 | Outpatient (BNVA) | payer MEDICARE, SELFPAY | PROVIDERS: PCP Family Medicine; Visit Provider Family Medicine | DX: I10 Essential (primary) hypertension (principal); E78.5 Hyperlipidemia, unspecified; R73.03 Prediabetes; H53.9 Unspecified visual disturbance | CPT/HCPCS: 96127; 99212 ==

== ENCOUNTER 2024-11-13 10:53 | Outpatient (AMB) | payer MEDICARE, SELFPAY ==
--- NOTE | 2024-11-13 11:06 | MHC.PC.OV ---
Vital Signs 11/13/24 11:10 Height 5 ft 7 in Weight 168 lb BMI 26.3 BP 124/72 Blood Pressure Location Rt brachial Position Sitting Respiration 14 Pulse 71 Pulse Source Pulse Oximeter Temp 98.2 F Temp Source Oral Pulse Oximetry (%) 98 Oxygen Delivery Method Room Air Intake Visit Reasons: pre op cataract surgery Intake Note: Pre op cataract surgery Delivery Helper Required: No Allergies cat dander Allergy (Verified 11/13/24 11:09) stuffy nose dog dander Allergy (Verified 11/13/24 11:09) stuffy nose house dust Allergy (Verified 11/13/24 11:09) stuffy nose Tobacco use date assessed: 11/13/24 Fall risk assessment: No Falls in past year Last assessed Fall Risk: 11/13/24 Dental Screening Dental Screen Date: 11/13/24 Did you have a dental visit in the last 12 months?: Yes Did you have a dental problem in the last 6 months where you did not have access to dental care?: No Was dental information given to patient?: Patient declined HPI HPI Comments History of Present Illness Details 64 y/o male with past medical history of hypertension, hyperlipidemia, prediabetes presenting for preoperative exam He has cataract scheduled tomorrow with Dr Paerson He has htn, hld. BP is well controlled 124/72. Denies chest pain, exertional dypsnea Has prediabetes. Has tolerated anesthesia in the past. Is quite active mowing lawns, can climb multiple flights of stairs. ROS CONSTITUTIONAL: Denies weight loss, fever and chills. HEENT: Denies changes in vision and hearing. RESPIRATORY: Denies SOB and cough. CV: Denies palpitations and CP GI: Denies abdominal pain, nausea, vomiting and diarrhea. : Denies dysuria and urinary frequency. MSK: Denies new myalgia and joint pain. SKIN: Denies rash and pruritus. NEUROLOGICAL: Denies headache PSYCHIATRIC: Denies recent changes in mood. PHYSICAL EXAM: GENERAL: Alert and oriented x 3. NAD EYES: EOMI. Anicteric. HENT: Moist mucous membranes. No scleral icterus. No cervical lymphadenopathy. LUNGS: Clear to auscultation bilaterally. CARDIOVASCULAR: Regular rate and rhythm. No murmur. No JVD. ABDOMEN: Soft, non-tender +bs EXTREMITIES: No edema. Non-tender. SKIN: No rashes or lesions. Warm. NEUROLOGIC: No focal neurological deficits. CN II-XII grossly intact PSYCHIATRIC: Cooperative. Appropriate mood and affect [facility] Medical History History of ear injury Surgical History History of lumpectomy History of knee surgery History of hand surgery History of hernia surgery Social History Housing: Other Housing Other:: mobile home Alcohol intake: never Patient Tobacco Use Status: Former Tobacco user e-Cigarette/Vaping Use: Never Used Second Hand Smoke Exposure: No service: No Current occupational status: disabled Current occupational exposures/hazards: No Cognitive needs: No Hearing needs: No Vision needs: Yes (Glasses) Questionnaire Thrive Questionnaire Date Thrive assessed: 10/11/24 I am a: Patient What is your living situation today?: I have a steady place to live Within the past 12 months, did the food you bought not last and you didn't have the money to get more?: Never true Within the past 12 months, did you worry whether your food would run out before you got money to buy more?: Never true Do you have trouble paying for medicines?: Yes Do you have trouble getting transportation to medical appointments?: No Do you have trouble paying your heating and electricity bill?: No Do you have trouble taking care of your child, family member or friend?: No Do you have trouble with day-to-day activities such as bathing, preparing meals, shopping, managing finances, etc.?: No Are you currently unemployed and looking for a job?: No Are you interested in more education?: No Please select the resources that you would like help with: Utilities Currently or been in a relationship where the following occur: No concerns reported THRIVE Score: 0 LOREE-7 AMB Questionnaire LOREE-7 Date LOREE - 7 assessed: 03/14/24 Source: Developed by Drs. Aleksander Amaya, Karine Sadler, Prasanna Richardson and colleagues, with an educational gertrude from [employer]. Physical exam (Primary Care) BMI result Body Mass Index 26.3 Tobacco/Smoking Status: Tobacco use Status Tobacco use date assessed 11/13/24 11/13/24 11:11 Patient Tobacco Use Status Former Tobacco user 11/13/24 11:07 e-Cigarette/Vaping Use Never Used 11/13/24 11:07 Thrive Assessment: Date of Thrive Assessment Date Thrive assessed 10/11/24 11/13/24 11:07 Currently or been in a relationship where the following occur: No concerns reported Coding Level of Care Code Est Pt Level 4 (20260) Diagnoses Preoperative examination Z01.818 Essential hypertension I10 Hyperlipidemia, unspecified hyperlipidemia type E78.5 Hyperlipidemia type: unspecified Assessment & Plan Assessment & Plan (1) Preoperative examination: Code(s): Z01.818 - Encounter for other preprocedural examination Category: Medical (2) Essential hypertension: Code(s): I10 - Essential (primary) hypertension Category: Medical (3) Hyperlipidemia: Code(s): E78.5 - Hyperlipidemia, unspecified Category: Medical Qualifiers: Hyperlipidemia type: unspecified Qualified Code(s): E78.5 - Hyperlipidemia, unspecified Plan 64 year old male for preoperative cardiac assessment No major surgical risk factors EKG reviewed and reassuring METS>/=4 He may proceed with planned procedure without further cardiac testing Orders: Orders Hemoglobin A1c Today R73.03 - Prediabetes
[2024-11-13 11:10] VITALS: BP 124/72; PULSE 71; RESP 14; TEMP 36.8; O2SAT 98; BMI 26.3
== END 2024-11-13 12:28 | disposition home or self-care (01) ==
LOC: HO.HMCFM 10:53
PROVIDERS: PCP Family Medicine; Visit Provider Internal Medicine
DX: Z01.818 Encounter for other preprocedural examination (principal); I10 Essential (primary) hypertension; E78.5 Hyperlipidemia, unspecified

== ENCOUNTER → 2024-11-13 10:53 | Outpatient (BNVA) | payer MEDICARE, SELFPAY | PROVIDERS: PCP Family Medicine; Visit Provider Internal Medicine | DX: Z01.818 Encounter for other preprocedural examination (principal); H26.9 Unspecified cataract; I10 Essential (primary) hypertension; E78.5 Hyperlipidemia, unspecified | CPT/HCPCS: 99212 ==

== ENCOUNTER 2025-01-12 07:44 | Outpatient (REF) | payer MEDICARE, SELFPAY ==
[2025-01-12 11:47] LABS: Alanine Aminotransferase 25 U/L (0-40); Albumin Level 4.5 g/dL (3.5-5.0); Alkaline Phosphatase 118 U/L (39-117); Anion Gap 13 (12-20); Aspartate Amino Transferase 22 U/L (5-37); Blood Urea Nitrogen 18 mg/dL (9-16); Calcium 9.5 mg/dL (8.4-10.2); Carbon Dioxide 26 mmol/L (22-29); Chloride 105 mmol/L (96-108); Cholesterol 156 mg/dL (<200); Estimated Glomerular Filt Rate > 60; HDL Cholesterol 45 mg/dL (>40); Potassium 4.4 mmol/L (3.3-5.1); Sodium 140 mmol/L (135-145); Total Protein 6.9 g/dL (6.5-8.0); Triglycerides 99 mg/dL (<150)
[2025-01-12 11:53] LABS: Hemoglobin A1C 194.3717 umol/L; Total Hemoglobin (HGBA1C) 4618.4308 umol/L
== END 2025-01-12 07:45 | disposition home or self-care (01) ==
LOC: HO.WFDLDS 07:44
PROVIDERS: Family Medicine; Visit Provider Internal Medicine
DX: Z00.00 Encounter for general adult medical examination without abnormal findings (principal); E78.5 Hyperlipidemia, unspecified; R73.03 Prediabetes
CPT/HCPCS: 36415; 80053; 80061; 83036

== ENCOUNTER 2025-01-18 08:55 | Outpatient (AMB) | payer MEDICARE, SELFPAY ==
--- NOTE | 2025-01-18 08:58 | A.OFFPC_ITS ---
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 Allergies cat dander Allergy (Verified 01/18/25 09:02) stuffy nose dog dander Allergy (Verified 01/18/25 09:02) stuffy nose house dust Allergy (Verified 01/18/25 09:02) stuffy nose Medication List - Last Reconciled 01/18/25 by Barrera Mayorga MD atorvastatin 80 mg PO BEDTIME 90 days back brace (Back Support S/M) As directed back brace As directed celecoxib 200 mg PO BID 90 days citalopram 40 mg PO DAILY 90 days famotidine (Acid Controller) 20 mg PO BEDTIME lisinopril 10 mg PO DAILY 90 days loratadine (Allergy Relief (loratadine)) 10 mg PO DAILY omeprazole 20 mg PO DAILY 90 days TENS units Daily As directed, 999 days/lifetime zolpidem 5 mg PO BEDTIME PRN 30 days Tobacco use date assessed: 01/18/25 Fall risk assessment: No Falls in past year Last assessed Fall Risk: 01/18/25 Dental Screening Dental Screen Date: 01/18/25 Did you have a dental visit in the last 12 months?: No Did you have a dental problem in the last 6 months where you did not have access to dental care?: No Was dental information given to patient?: Patient has dentist HPI f/u HTN, HLD, prediabetes HPI Details Patient presents to follow-up hypertension, hyperlipidemia and pre diabetes. Recent A1c is 6.0%. Blood pressure today 134/76 Reviewed lipids with patient; all within normal range on atorvastatin mg daily which he is tolerating well. No new complaints. Patient feels well. FOR[facility] Medical History History of ear injury Surgical History History of lumpectomy History of knee surgery History of hand surgery History of hernia surgery Social History Housing: Other Housing Other:: mobile home Alcohol intake: never Patient Tobacco Use Status: Former Tobacco user e-Cigarette/Vaping Use: Never Used Second Hand Smoke Exposure: No service: No Current occupational status: disabled Current occupational exposures/hazards: No Cognitive needs: No Hearing needs: No Vision needs: Yes (Glasses) Questionnaire Thrive Questionnaire Date Thrive assessed: 10/11/24 I am a: Patient What is your living situation today?: I have a steady place to live Within the past 12 months, did the food you bought not last and you didn't have the money to get more?: Never true Within the past 12 months, did you worry whether your food would run out before you got money to buy more?: Never true Do you have trouble paying for medicines?: Yes Do you have trouble getting transportation to medical appointments?: No Do you have trouble paying your heating and electricity bill?: No Do you have trouble taking care of your child, family member or friend?: No Do you have trouble with day-to-day activities such as bathing, preparing meals, shopping, managing finances, etc.?: No Are you currently unemployed and looking for a job?: No Are you interested in more education?: No Please select the resources that you would like help with: Utilities Currently or been in a relationship where the following occur: No concerns reported THRIVE Score: 0 LOREE-7 AMB Questionnaire LOREE-7 Date LOREE - 7 assessed: 03/14/24 Source: Developed by Drs. Aleksander Amaya, Karine Sadler, Prasanna Richardson and colleagues, with an educational gertrude from [employer]. Review of Systems Const Denies chills, Denies fatigue, Denies fever(s), Denies headache(s) and Denies weakness ENT Denies dizziness and Denies headache(s) Card Denies chest pain, Denies lightheadedness, Denies dyspnea and Denies other (Palpitations) Resp Denies cough, Denies dyspnea, Denies wheezing and Denies other ( shortness of breath) Musc Denies numbness and Denies tingling Neuro Denies dizziness, Denies headache(s), Denies numbness, Denies tingling, Denies paresthesias and Denies weakness Psych Denies anxiety and Denies depression Endo Denies fatigue Aller/Immun Denies wheezing Physical exam (Primary Care) Vital Signs: Last Vital Signs Temp 97.9 F 01/18/25 09:03 Pulse 97 01/18/25 09:03 Resp 16 01/18/25 09:03 BP 134/76 01/18/25 09:03 Pulse Ox 97 01/18/25 09:03 Oxygen Delivery Method Room Air 01/18/25 09:03 BMI result Body Mass Index 27.2 Tobacco/Smoking Status: Tobacco use Status Tobacco use date assessed 01/18/25 01/18/25 09:07 Patient Tobacco Use Status Former Tobacco user 01/18/25 09:00 e-Cigarette/Vaping Use Never Used 01/18/25 09:00 Thrive Assessment: Date of Thrive Assessment Date Thrive assessed 10/11/24 01/18/25 09:00 Currently or been in a relationship where the following occur: No concerns reported Const General: no acute distress and well developed Nutritional Appearance: well nourished Orientation/consciousness: patient oriented x3 HENMT Head: Yes normocephalic and Yes atraumatic Eyes General: appearance normal, both eyes and all related structures Pupils: Equal, round and reactive pupils present EOM: EOMs intact bilaterally Resp Effort & Inspection: normal respiratory effort Auscultation: clear to auscultation bilaterally Cardio Rate: regular rate Rhythm: regular rhythm Heart sounds: S1 normal heart sound present, S2 normal heart sound present, no gallops, no murmurs and no rubs Neuro General: patient oriented x3 and gait normal Cranial nerves: Yes Equal, round and reactive pupils present Psych Affect: normal affect Coding Level of Care Code Est Pt Level 4 (88607) Diagnoses Essential hypertension I10 Hyperlipidemia, unspecified hyperlipidemia type E78.5 Hyperlipidemia type: unspecified Pre-diabetes R73.03 Assessment & Plan Assessment & Plan (1) Essential hypertension: Code(s): I10 - Essential (primary) hypertension Category: Medical Plan: Blood pressure is controlled though climbed slightly. Goal is less than 140/90 and he remains at goal. Continue current medication He has gained little weight and I encouraged weight loss and exercise Watch salt and sodium in diet (2) Hyperlipidemia: Code(s): E78.5 - Hyperlipidemia, unspecified Category: Medical Qualifiers: Hyperlipidemia type: unspecified Qualified Code(s): E78.5 - Hyperlipidemia, unspecified Plan: Lipids are controlled on atorvastatin 80 mg daily Continue current medication (3) Pre-diabetes: Code(s): R73.03 - Prediabetes Category: Medical Plan: A1c 6.0% is good control. Goal is less than 7.0% Continue diet low in sugars and starches. Encouraged weight loss and exercise
[2025-01-18 09:03] VITALS: BP 134/76; PULSE 97; RESP 16; TEMP 36.6; O2SAT 97; BMI 27.2
== END 2025-01-18 10:20 | disposition home or self-care (01) ==
LOC: HO.HMCFM 08:56
PROVIDERS: PCP Family Medicine; Visit Provider Family Medicine
DX: I10 Essential (primary) hypertension (principal); E78.5 Hyperlipidemia, unspecified; R73.03 Prediabetes

== ENCOUNTER → 2025-01-18 08:55 | Outpatient (BNVA) | payer MEDICARE, SELFPAY | PROVIDERS: PCP Family Medicine; Visit Provider Family Medicine | DX: I10 Essential (primary) hypertension (principal); E78.5 Hyperlipidemia, unspecified; R73.03 Prediabetes | CPT/HCPCS: 99212 ==

== ENCOUNTER 2025-04-23 11:31 | Outpatient (AMB) | payer MEDICARE, SELFPAY ==
[2025-04-23 11:40] VITALS: BP 118/80; PULSE 85; TEMP 36.4; O2SAT 97; BMI 27.2
--- NOTE | 2025-04-23 11:40 | MHC.PC.OV ---
Vital Signs 04/23/25 11:40 Height 5 ft 7 in Weight 173 lb 8 oz BMI 27.2 BP 118/80 Blood Pressure Location Rt brachial Position Sitting Pulse 85 Pulse Source Pulse Oximeter Temp 97.6 F Temp Source Temporal Artery Scan Pulse Oximetry (%) 97 Oxygen Delivery Method Room Air Intake Visit Reasons: Follow-up hypertension and pre diabetes Allergies cat dander Allergy (Verified 04/23/25 11:41) stuffy nose dog dander Allergy (Verified 04/23/25 11:41) stuffy nose house dust Allergy (Verified 04/23/25 11:41) stuffy nose Tobacco use date assessed: 04/23/25 Fall risk assessment: No Falls in past year Last assessed Fall Risk: 04/23/25 Dental Screening Dental Screen Date: 04/23/25 Did you have a dental visit in the last 12 months?: No Did you have a dental problem in the last 6 months where you did not have access to dental care?: No Was dental information given to patient?: No HPI Follow-up hypertension and pre diabetes HPI Details 65 y/o male presents to f/u HTN, prediabetes. BP today 118/80, 85p. He is on lisinopril 10mg daily. A1c today 5.9%. [facility] Medical History History of ear injury Surgical History History of lumpectomy History of knee surgery History of hand surgery History of hernia surgery Social History Housing: Other Housing Other:: mobile home Alcohol intake: never Patient Tobacco Use Status: Former Tobacco user e-Cigarette/Vaping Use: Never Used Second Hand Smoke Exposure: No service: No Current occupational status: disabled Current occupational exposures/hazards: No Cognitive needs: No Hearing needs: No Vision needs: Yes (Glasses) Questionnaire PHQ-9 Over the last 2 weeks, how often have you been bothered by any of the following problems? 1. Little interest or pleasure in doing things: not at all 2. Feeling down, depressed, or hopeless: not at all 3. Trouble falling or staying asleep, or sleeping too much: several days 4. Feeling tired or having little energy: not at all 5. Poor appetite or overeating: not at all 6. Feeling bad about yourself - or that you are a failure or have let yourself or your family down: not at all 7. Trouble concentrating on things, such as reading the newspaper or watching television: not at all 8. Moving or speaking so slowly that other people could have noticed. Or the opposite - being so fidgety or restless that you have been moving around a lot more than usual: not at all 9. Thoughts that you would be better off or of hurting yourself in some way: not at all Total score: 1 Source: Developed by Drs. Aleksander Amaya, Karine Sadler, Prasanna Richardson and colleagues, with an educational gertrude from [employer]. Thrive Questionnaire Date Thrive assessed: 10/11/24 I am a: Patient What is your living situation today?: I have a steady place to live Within the past 12 months, did the food you bought not last and you didn't have the money to get more?: Never true Within the past 12 months, did you worry whether your food would run out before you got money to buy more?: Never true Do you have trouble paying for medicines?: Yes Do you have trouble getting transportation to medical appointments?: No Do you have trouble paying your heating and electricity bill?: No Do you have trouble taking care of your child, family member or friend?: No Do you have trouble with day-to-day activities such as bathing, preparing meals, shopping, managing finances, etc.?: No Are you currently unemployed and looking for a job?: No Are you interested in more education?: No Please select the resources that you would like help with: Utilities Currently or been in a relationship where the following occur: No concerns reported THRIVE Score: 0 AUDIT C Alcohol Use Questionnaire (AUDIT-C) 1. How often do you have a drink containing alcohol?: Never 3. How often do you have six or more drinks on one occasion?: Never Total Score: 0 LOREE-7 AMB Questionnaire LOREE-7 Date LOREE - 7 assessed: 04/23/25 Feeling nervous, anxious, or on edge: 0 = Not at all Not being able to stop or control worryin = Not at all Worrying too much about different things: 0 = Not at all Trouble relaxin = Not at all Being so restless that it is hard to sit still: 0 = Not at all Becoming easily annoyed or irritable: 0 = Not at all Feeling afraid as if something awful might happen: 0 = Not at all Total LOREE-7 score (0-4 normal; 5-9 mild; 10-14 moderate; 15-21 severe): 0 Source: Developed by Drs. Aleksander Amaya, Karine Sadler, Prasanna Richardson and colleagues, with an educational gertrude from [employer]. Review of Systems Const Denies chills, Denies fatigue, Denies fever(s), Denies headache(s) and Denies weakness ENT Denies dizziness and Denies headache(s) Card Denies dyspnea Resp Denies cough, Denies dyspnea, Denies wheezing and Denies other (shortness of breath) Musc Denies numbness and Denies tingling Neuro Denies dizziness, Denies headache(s), Denies numbness, Denies tingling and Denies weakness Psych Denies anxiety and Denies depression Endo Denies fatigue Aller/Immun Denies wheezing Physical exam (Primary Care) Vital Signs: Last Vital Signs Temp 97.6 F 04/23/25 11:40 Pulse 85 04/23/25 11:40 BP 118/80 04/23/25 11:40 Pulse Ox 97 04/23/25 11:40 Oxygen Delivery Method Room Air 04/23/25 11:40 BMI result Body Mass Index 27.2 Tobacco/Smoking Status: Tobacco use Status Tobacco use date assessed 04/23/25 04/23/25 11:42 Patient Tobacco Use Status Former Tobacco user 04/23/25 11:42 e-Cigarette/Vaping Use Never Used 04/23/25 11:42 PHQ-9: PHQ-9 Score PHQ-9: Total score 1 04/23/25 12:59 Thrive Assessment: Date of Thrive Assessment Date Thrive assessed 10/11/24 04/23/25 11:42 Currently or been in a relationship where the following occur: No concerns reported Const General: well developed; No acute distress Nutritional Appearance: well nourished Orientation/consciousness: patient oriented x3 HENMT Head: Yes normocephalic and Yes atraumatic Eyes General: appearance normal, both eyes and all related structures Pupils: Equal, round and reactive pupils present EOM: EOMs intact bilaterally Resp Effort & Inspection: normal respiratory effort Auscultation: clear to auscultation bilaterally Cardio Rate: regular rate Rhythm: regular rhythm Heart sounds: S1 normal heart sound present, S2 normal heart sound present, no gallops, no murmurs and no rubs Neuro General: patient oriented x3 and gait normal Cranial nerves: Yes Equal, round and reactive pupils present Psych Affect: normal affect Results AMB Hemoglobin A1c AMB Hemoglobin A1c 5.9 % Last Edit by Melinda Rod CMA on 04/23/25 12:20 Results Reviewed Results Reviewed: Laboratory Last Values Hgb A1c (Clinic) 5.9 % (4.0-6.0) 04/23/25 12:14 Coding Level of Care Code Est Pt Level 3 (80387) Diagnoses Essential hypertension I10 Pre-diabetes R73.03 Assessment & Plan Assessment & Plan (1) Essential hypertension: Code(s): I10 - Essential (primary) hypertension Category: Medical Plan: Blood pressure is well controlled. Goal is less than 140/90 Continue current medication (2) Pre-diabetes: Code(s): R73.03 - Prediabetes Category: Medical Plan: A1c 5.9%. Early pre diabetes range. Continue to work at a diet low in sugars and starches Orders: Orders AMB Hemoglobin A1c Today Z13.9 - Encounter for screening, unspecified
== END 2025-04-23 13:02 | disposition home or self-care (01) ==
LOC: HO.HMCFM 11:32
PROVIDERS: PCP Family Medicine; Visit Provider Family Medicine
DX: I10 Essential (primary) hypertension (principal); R73.03 Prediabetes; Z13.9 Encounter for screening, unspecified

== ENCOUNTER → 2025-04-23 11:31 | Outpatient (BNVA) | payer MEDICARE, SELFPAY | PROVIDERS: PCP Family Medicine; Visit Provider Family Medicine | DX: I10 Essential (primary) hypertension (principal); R73.03 Prediabetes | CPT/HCPCS: 83036; 96127; 99212 ==